=== PATIENT | male | born 1950 | race Caucasian/White ===

== ENCOUNTER 2022-08-15 18:44 | Emergency (ER) | payer MEDICARE, OTHER, SELFPAY ==
[2022-08-15 18:51] VITALS: BP 116/78; PULSE 87; RESP 18; TEMP 36.9; O2SAT 94; BMI 25.0
--- NOTE | 2022-08-15 19:24 | ED.GENADULT ---
HPI - General Adult General Chief complaint: Extremity Pain/Injury, Upper Stated complaint: R hand pinky laceration Time Seen by Provider: 08/15/22 18:58 Source: patient Mode of arrival: ambulatory Limitations: no limitations History of Present Illness HPI narrative: 72-year-old male coming in today complaining of laceration to the right pinky finger. He went to [facility] it was falling and it sliced his finger. This occurred approximately 8 hours ago. He cannot get it to stop bleeding. His wrapped it up with Steri-Strips and continues to ooze. Last tetanus shot we have on file is 2011, patient states that he have 1 more recently at the [facility]. He is refusing a tetanus shot today. Related Data Allergies Allergy/AdvReac Type Severity Reaction Status Date / Time No Known Drug Allergies Allergy Verified 08/15/22 18:50 Review of Systems Status of ROS: Reports: 6 or more systems reviewed and unremarkable except as noted in History and below [facility] Social History Smoking Status: Never smoker Do you use any of these nicotine containing products: None Second hand tobacco smoke exposure: No How often do you have a drink containing alcohol: never How often do you have six or more drinks on one occasion: Never AUDIT-C Alcohol total score: 0 Non-prescribed substance use: denies use service: Yes Exam Narrative: Exam Narrative: Well-nourished well-developed patient in no acute distress. Alert and oriented. Answers questions appropriately. Mood and affect are appropriate. Thoughts are goal oriented and rational. No tangential or magical thinking noted. Patient speaks in full sentences without needing to catch his breath. HEENT: Normocephalic atraumatic. Pupils are equally round reactive to light. Extraocular muscles are intact. Conjunctivae are moist without any icterus noted. Moist mucous membranes. Extremities: Patient has approximately a 1 cm laceration on the palmar surface the lateral pinky. Does not cross joint line. He has 2 smaller lacerations into the palm of the hand which are very superficial and do not break through the skin into the subcutaneous tissue. Const: Vital Signs, click to edit/add: Vital Signs - 24 hr 08/15/22 18:51 Temperature 98.4 F Pulse Rate [Pulse Oximeter] 87 Respiratory Rate 18 Blood Pressure [Le ft Upper Arm] 116/78 Pulse Oximetry 94 Oxygen Delivery Me thod Room Air Course Course Hospital Course: Finger was anesthetized with a digital block with lidocaine. The wound was then irrigated profusely and explored given the duration of time that it has been open. Four sutures with 3-0 Ethilon were used to suture the laceration with great skin approximation and no complications. Vital Signs Vital signs: Initial Vital Signs Temperature 98.4 F 08/15/22 18:51 Temperature Source Temporal Artery Scan 08/15/22 18:51 Pulse Rate 87 08/15/22 18:51 Pulse Rhythm Regular 08/15/22 18:51 Respiratory Rate 18 08/15/22 18:51 Blood Pressure 116/78 08/15/22 18:51 Blood Pressure Mean 90 08/15/22 18:51 Blood Pressure Position Supine 08/15/22 18:51 Pulse Oximetry 94 08/15/22 18:51 Oxygen Delivery Method Room Air 08/15/22 18:51 Vital Signs Temperature 98.4 F 08/15/22 18:51 Pulse Rate 87 08/15/22 18:51 Respiratory Rate 18 08/15/22 18:51 Blood Pressure 116/78 08/15/22 18:51 Pulse Oximetry 94 08/15/22 18:51 Oxygen Delivery Method Room Air 08/15/22 18:51 Temperature 98.4 F 08/15/22 18:51 Pulse Rate 87 08/15/22 18:51 Respiratory Rate 18 08/15/22 18:51 Blood Pressure 116/78 08/15/22 18:51 Pulse Oximetry 94 08/15/22 18:51 Oxygen Delivery Method Room Air 08/15/22 18:51 Medical Decision Making [facility] Narrative Medical decision making narrative: 72-year-old male with laceration to the hands treated per above. We discussed wound hygiene, signs symptoms of infection, reasons to return for follow-up and suture removal in about 7-10 days. Again patient refusing tetanus shot today. Discharge Plan Discharge Clinical Impression: Laceration Patient Disposition: Home, Self-Care Condition: Stable Additional Instructions: Keep hand clean and dry. Okay to shower like you normally would but do not soak the hand such as doing the dishes or going swimming. Sutures into removed in approximately 7-10 days with your primary care provider. If you see any signs of infection which include redness of the finger draining of pus or increasing pain, follow-up right away with your doctor or return to the ER. Stand Alone Forms: [employer] Instructions
== END 2022-08-15 19:44 | disposition home or self-care (01) ==
LOC: ED 19:35
PROVIDERS: Emergency Provider Family Medicine
DX: S61.216A Laceration without foreign body of right little finger without damage to nail, initial encounter (principal); W26.9XXA Contact with unspecified sharp object(s), initial encounter
CPT/HCPCS: 12001; 99283; 99284